=== PATIENT | male | born 1950 | race African-American/Black ===

== ENCOUNTER 2016-11-02 07:46 | Outpatient (CLI) | payer MEDICARE ==
[2016-11-02] MEDS ORDERED: Iopamidol 370 76% 100 ML VIAL ONE (11:04)
--- NOTE | 2016-11-02 13:12 | CT ---
CT OF THE ABDOMEN AND PELVIS WITH AND WITHOUT CONTRAST INDICATIONS: Pancreatic cystic mass. COMPARISON: CT of the chest, abdomen, and pelvis, dated 08/25/2016. CONTRAST: Isovue 90 mL. FINDINGS: There is a 1.4 cm cystic lesion without appreciable interval enhancement involving the pancreatic ta il. This is slightly smaller than seen on the comparison CT dated 12/25/2015 and may reflect a reso lving pseudo cyst. There are layered gallstones within the gallbladder. There is prominent fatty infiltration of the l iver. The adrenal glands are normal appearing. The kidneys are normal appearing. No free fluid or large lymph nodes evident. There is a moderate amount of retained stool within the colon. The shade dder is decompressed. There are scattered diverticula involving the colon without evidence of activ e diverticulitis. There is no evidence of bowel obstruction. There is a right-sided inguinal herni a, containing portions of the cecum and the terminal ileum. This is similar to the prior exam. The re is scattered degenerative and osteoarthritic change. IMPRESSION: 1. Cystic lesion involving the pancreatic tail demonstrates no appreciable internal enhancement and is slightly smaller than on the comparison CT and may reflect a resolving pseudo cyst. Recommend a follow-up examination in three months to document stability. 2. Fatty liver. 3. Cholelithiasis. 4. Colonic diverticulosis. 5. Enlarged right inguinal hernia, containing portions of the cecum and the terminal ileum, without evidence of obstruction. POS: [facility]
== END 2016-11-02 07:47 | disposition home or self-care (01) ==
LOC: MADCT 07:46
PROVIDERS: ATTEND Internal Medicine
DX: K86.2 Cyst of pancreas (principal); K76.0 Fatty (change of) liver, not elsewhere classified; K80.20 Calculus of gallbladder without cholecystitis without obstruction; K57.30 Diverticulosis of large intestine without perforation or abscess without bleeding; K40.90 Unilateral inguinal hernia, without obstruction or gangrene, not specified as recurrent
CPT/HCPCS: 36415; 74178; 82565

== ENCOUNTER 2017-02-17 08:45 | Outpatient (CLI) | payer MEDICARE ==
[2017-02-17 09:15] LABS: Hemoglobin A1c 7.3 % (4.0-6.0)
[2017-02-17 09:33] LABS: ALT (SGPT) 8 U/L (8-55); AST (SGOT) 8 U/L (5-34); Albumin 4.1 g/dL (3.4-4.8); Alkaline Phosphatase 93 U/L (40-150); Anion Gap 13 mmol/L (10-20); BUN (Urea Nitrogen) 23 mg/dL (8.4-25.7); Bilirubin, Total 1.4 mg/dL (0.2-1.2); Calc. Creatinine Clearance 0 mL/min (70-130); Calcium 9.1 mg/dL (7.8-10.44); Carbon Dioxide 24 mmol/L (23-31); Cardiac Risk 3.4 (Less than 4.5); Chloride 108 mmol/L (98-107); Cholesterol 135 mg/dl (< 200 Desired); Estimated GFR-MDRD 68; Globulin 3.7 g/dL (2.4-3.5); Glucose 98 mg/dL (80-115); HDL Cholesterol 40 mg/dL (>60 Neg Risk); LDL Cholesterol, Calculated 79 mg/dL; Potassium 3.8 mmol/L (3.5-5.1); Protein, Total 7.8 g/dL (5.8-8.1); Sodium 141 mmol/L (136-145); Triglycerides 78 mg/dL (Less than 150)
== END 2017-02-17 08:46 ==
LOC: MADLABBHPM 08:45
PROVIDERS: ATTEND Family Medicine
DX: E11.65 Type 2 diabetes mellitus with hyperglycemia (principal)
CPT/HCPCS: 36415; 80053; 80061; 83036

== ENCOUNTER 2017-02-22 11:20 | Outpatient (CLI) | payer MEDICARE ==
[2017-02-22 12:19] LABS: ALT (SGPT) 9 U/L (8-55); AST (SGOT) 9 U/L (5-34); Albumin 3.9 g/dL (3.4-4.8); Alkaline Phosphatase 102 U/L (40-150); Bilirubin, Direct 0.4 mg/dL (0.1-0.3); Bilirubin, Total 1.1 mg/dL (0.2-1.2); Protein, Total 7.6 g/dL (5.8-8.1)
[2017-02-22 17:31] LABS: HBCM Index 0.05 S/CO (0-0.79); HBSAg Index 0.27 S/CO (0-0.99); Hep A IgM AB Non-Reactive (NonReactive); Hep A IgM S/CO 0.12 S/CO (0-0.79); Hep B Surf Ag Non-Reactive S/CO (NonReactive); Hep C IgG Ab Non-Reactive (NonReactive); Hep C Index 0.06 S/CO (0-0.79); Hepatitis B Core IGM Abs Non-Reactive (NonReactive)
== END 2017-02-22 11:21 | disposition home or self-care (01) ==
LOC: MADLABBHPM 11:20
PROVIDERS: ATTEND Family Medicine
DX: E80.6 Other disorders of bilirubin metabolism (principal)
CPT/HCPCS: 36415; 80074; 80076

== ENCOUNTER 2017-03-15 11:46 | Emergency (ER) | payer MEDICARE ==
[~2017-03-15 11:46] MED LIST: Sodium Chloride 0.9% 100 ML BAG ONE
--- NOTE | 2017-03-15 12:28 | RAD ---
PORTABLE CHEST ONE VIEW: Date: 03-15-17 Time: 11:53 a.m. History: Bilateral leg edema. FINDINGS: Comparison made with exam of 08-25-16. The heart size is normal. The aorta is tortuous. The lungs are well expanded without confluent areas of consultation, pneumothorax, or pleural effusions. IMPRESSION: No radiographic evidence of acute cardiopulmonary process. POS: [facility]
[2017-03-15 13:06] LABS: ALT (SGPT) 10 U/L (8-55); AST (SGOT) 11 U/L (5-34); Albumin 3.6 g/dL (3.4-4.8); Alkaline Phosphatase 92 U/L (40-150); Anion Gap 14 mmol/L (10-20); BUN (Urea Nitrogen) 18 mg/dL (8.4-25.7); Bilirubin, Total 1.1 mg/dL (0.2-1.2); Calc. Creatinine Clearance 0 mL/min (70-130); Calcium 8.7 mg/dL (7.8-10.44); Carbon Dioxide 21 mmol/L (23-31); Chloride 110 mmol/L (98-107); Estimated GFR-MDRD 84; Globulin 3.3 g/dL (2.4-3.5); Glucose 88 mg/dL (80-115); Protein, Total 6.9 g/dL (5.8-8.1); Sodium 141 mmol/L (136-145)
[2017-03-15 13:17] LABS: Band 1 % (5-11); Eosinophils 1 % (0-10); Lymphocytes 18 % (21-51); MDiff Complete? YES; Mean Corpuscular HGB CONC 31.6 g/dL (32.0-36.0); Mean Corpuscular Hemoglobin 27.8 pg (27.0-31.0); Mean Platelet Volume 10.5 fL (7.4-10.4); Microcytosis SLIGHT = 6-15 cells (100X) (0-5/hpf); Monocytes 12 % (0-10); Neutrophil 67 % (42-75); Platelet Count 124 thou/uL (130-400); RBC Distribution Width 13.4 % (11.5-14.5); Red Blood Cell (RBC) Count 4.31 mill/uL (4.70-6.10); White Blood Cell (WBC) Count 5.3 thou/uL (4.8-10.8)
[2017-03-15] MEDS ORDERED: Potassium Chloride 20 MEQ TAB ONE (13:26)
[2017-03-15] MEDS ORDERED: Piperacillin/Tazobactam 3.375 GM VIAL ONE (13:26)
[2017-03-15] MEDS ORDERED: Furosemide 20 MG/2 ML VIAL ONE (13:26)
== END 2017-03-15 15:02 ==
LOC: MADERS 11:46
DX: R60.0 Localized edema (principal); E78.5 Hyperlipidemia, unspecified; E11.9 Type 2 diabetes mellitus without complications; I10 Essential (primary) hypertension; Z86.73 Personal history of transient ischemic attack (TIA), and cerebral infarction without residual deficits; Z79.82 Long term (current) use of aspirin; Z79.899 Other long term (current) drug therapy; Z79.4 Long term (current) use of insulin; Z79.02 Long term (current) use of antithrombotics/antiplatelets
CPT/HCPCS: 36415; 71010; 80053; 83880; 85025; 85379; 93005; 96365; 96375; J1940; J2543; J7050

== ENCOUNTER 2017-03-17 13:12 | Outpatient (CLI) | payer MEDICARE ==
[~2017-03-17 13:12] MED LIST changes: +Iopamidol 370 76% 100 ML VIAL ONE; -Sodium Chloride 0.9% 100 ML BAG ONE
--- NOTE | 2017-03-17 16:05 | CT ---
CT OF THE ABDOMEN PERFORMED WITH INTRAVENOUS CONTRAST ENHANCEMENT: 03/17/17 HISTORY: Followup of pancreatic cyst. COMPARISON: 11/02/16 and 08/25/16 exams. The lung bases are clear of infiltrates. The liver shows suggestion of some fatty change. The spleen is within normal limits of size. The pittman creatic tail mass is stable in appearance as compared to most recent exam. It measures approximately 15 to 16 mm in size. I do not appreciate an appreciable change. Gallbladder has sludge and stones. The right and left adrenal glands and right and left kidneys are normal in appearance. There is no s ignificant periaortic or mesenteric adenopathy. IMPRESSION: 1. Stable approximately 15 to 16 mm pancreatic tail low attenuation mass. 2. Sludge and stones within the gallbladder. 3. Fatty changes of the liver. 4. Colonic diverticulosis. POS: [facility]
== END 2017-03-17 13:13 | disposition home or self-care (01) ==
LOC: MADCT 13:12
PROVIDERS: ATTEND Family Medicine
DX: K86.2 Cyst of pancreas (principal); K80.20 Calculus of gallbladder without cholecystitis without obstruction; K57.30 Diverticulosis of large intestine without perforation or abscess without bleeding
CPT/HCPCS: 74160

== ENCOUNTER 2017-10-04 03:30 | Emergency (ER) | payer MEDICARE ==
[2017-10-04] MEDS ORDERED: Lidocaine 1% w/Epinephrine 1:100K 20 ML VIAL ONE (03:51)
[2017-10-04] MEDS ORDERED: Triple Antibiotic Oint 1 GM Packet ONE (04:22)
[2017-10-04] MEDS ORDERED: Amoxicillin/Potassium Clav 500 MG TAB ONE (04:33)
== END 2017-10-04 04:55 | disposition home or self-care (01) ==
LOC: MADERS 03:30
DX: S01.81XA Laceration without foreign body of other part of head, initial encounter (principal); S01.512A Laceration without foreign body of oral cavity, initial encounter; E78.5 Hyperlipidemia, unspecified; Z86.73 Personal history of transient ischemic attack (TIA), and cerebral infarction without residual deficits; E11.9 Type 2 diabetes mellitus without complications; I10 Essential (primary) hypertension; Z79.4 Long term (current) use of insulin; Z79.82 Long term (current) use of aspirin; Z79.899 Other long term (current) drug therapy; W18.09XA Striking against other object with subsequent fall, initial encounter
CPT/HCPCS: 12013; J2001

== ENCOUNTER 2018-05-12 18:05 | Emergency (ER) | payer MEDICARE, OTHER | END 2018-05-12 18:52 | LOC: MADERS 18:05 | DX: I10 Essential (primary) hypertension (principal); R60.0 Localized edema; E78.5 Hyperlipidemia, unspecified; Z86.73 Personal history of transient ischemic attack (TIA), and cerebral infarction without residual deficits; Z79.899 Other long term (current) drug therapy | CPT/HCPCS: 99284 ==

== ENCOUNTER 2018-12-26 19:37 | Emergency (ER) | payer MEDICARE, OTHER ==
[2018-12-26 20:23] LABS: #Eosinphils 0.1 thou/uL (0.0-0.7); #Lymphocytes 1.5 thou/uL (1.20-3.40); #Monocytes 0.5 thou/uL (0.11-0.59); #Neutrophils 3.4 thou/uL (1.40-6.50); %Basophils 0.4 % (0.0-1.0); %Eosinophils 2.2 % (0.0-10.0); %Lymphocytes 26.7 % (21.0-51.0); %Monocytes 8.4 % (0.0-10.0); %Neutrophils 62.3 % (42.0-75.0); Hemoglobin 12.5 g/dL (14.0-18.0); Mean Corpuscular Hemoglobin 27.5 pg (27.0-31.0); Mean Corpuscular Volume 88.8 fL (78.0-98.0); Mean Platelet Volume 9.8 fL (7.4-10.4); Platelet Count 163 thou/uL (130-400); RBC Distribution Width 13.4 % (11.5-14.5); Red Blood Cell (RBC) Count 4.55 mill/uL (4.70-6.10); White Blood Cell (WBC) Count 5.4 thou/uL (4.8-10.8)
--- NOTE | 2018-12-26 20:37 | RAD ---
Portable frontal chest radiograph: 12/26/2018 COMPARISON: 03/15/2017 HISTORY: Shortness of breath FINDINGS: Small bilateral pleural effusions. Pulmonary vessels are congestion noted. No pneumothorax. No lobar consolidation. Cardiac silhouette is prominent. IMPRESSION: Prominent cardiac silhouette with pulmonary vascular congestion and small bilateral pleur al effusions suggest pulmonary edema. Follow-up imaging following treatment advised.
[2018-12-26 20:47] LABS: ALT (SGPT) 10 U/L (8-55); AST (SGOT) 11 U/L (5-34); Albumin 3.7 g/dL (3.4-4.8); Alkaline Phosphatase 111 U/L (40-150); Anion Gap 15 mmol/L (10-20); BUN (Urea Nitrogen) 22 mg/dL (8.4-25.7); Bilirubin, Total 0.7 mg/dL (0.2-1.2); Calc. Creatinine Clearance 0 mL/min (70-130); Calcium 8.8 mg/dL (7.8-10.44); Carbon Dioxide 22 mmol/L (23-31); Chloride 107 mmol/L (98-107); Estimated GFR-MDRD 69; Globulin 2.8 g/dL (2.4-3.5); Glucose 308 mg/dL (80-115); Potassium 4.1 mmol/L (3.5-5.1); Protein, Total 6.5 g/dL (5.8-8.1); Sodium 140 mmol/L (136-145)
[2018-12-26] MEDS ORDERED: Nitroglycerin 2% Ointment 1 INCH/1 GM Packet ONE (20:47)
[2018-12-26] MEDS ORDERED: Insulin Regular 300 UNITS/3 ML VIAL ONE (20:57)
[2018-12-26] MEDS ORDERED: Furosemide 40 MG/4 ML VIAL ONE (20:57)
== END 2018-12-26 23:20 | disposition left against medical advice (07) ==
LOC: MADERS 19:37 → MADMS 21:36 → UNDOADMIN 21:36 → MADERS 23:20
DX: I11.0 Hypertensive heart disease with heart failure (principal); I50.1 Left ventricular failure, unspecified; E11.65 Type 2 diabetes mellitus with hyperglycemia; E78.5 Hyperlipidemia, unspecified; Z86.73 Personal history of transient ischemic attack (TIA), and cerebral infarction without residual deficits; Z79.899 Other long term (current) drug therapy; Z79.4 Long term (current) use of insulin; Z79.82 Long term (current) use of aspirin
CPT/HCPCS: 36416; 71045; 80053; 83880; 84484; 85025; 93005; 96374; J1815; J1940

== ENCOUNTER 2018-12-27 14:16 | Emergency (ER) | payer MEDICARE, OTHER ==
[2018-12-27 15:07] LABS: #Eosinphils 0.1 thou/uL (0.0-0.7); #Lymphocytes 1.3 thou/uL (1.20-3.40); #Monocytes 0.5 thou/uL (0.11-0.59); #Neutrophils 4.3 thou/uL (1.40-6.50); %Basophils 0.3 % (0.0-1.0); %Eosinophils 1.5 % (0.0-10.0); %Lymphocytes 20.5 % (21.0-51.0); %Neutrophils 69.7 % (42.0-75.0); Hemoglobin 12.2 g/dL (14.0-18.0); Mean Corpuscular HGB CONC 30.4 g/dL (32.0-36.0); Mean Corpuscular Hemoglobin 27.4 pg (27.0-31.0); Mean Corpuscular Volume 90.1 fL (78.0-98.0); Mean Platelet Volume 10.1 fL (7.4-10.4); Platelet Count 159 thou/uL (130-400); RBC Distribution Width 13.4 % (11.5-14.5); Red Blood Cell (RBC) Count 4.46 mill/uL (4.70-6.10); White Blood Cell (WBC) Count 6.1 thou/uL (4.8-10.8)
[2018-12-27 15:25] LABS: ALT (SGPT) 9 U/L (8-55); AST (SGOT) 9 U/L (5-34); Albumin 3.8 g/dL (3.4-4.8); Alkaline Phosphatase 120 U/L (40-150); Anion Gap 16 mmol/L (10-20); BUN (Urea Nitrogen) 22 mg/dL (8.4-25.7); Bilirubin, Total 0.7 mg/dL (0.2-1.2); Calc. Creatinine Clearance 0 mL/min (70-130); Carbon Dioxide 22 mmol/L (23-31); Chloride 108 mmol/L (98-107); Estimated GFR-MDRD 73; Globulin 3.3 g/dL (2.4-3.5); Glucose 269 mg/dL (80-115); Potassium 4.1 mmol/L (3.5-5.1); Protein, Total 7.1 g/dL (5.8-8.1); Sodium 142 mmol/L (136-145)
--- NOTE | 2018-12-27 15:36 | RAD ---
SINGLE VIEW OF THE CHEST: Comparison: 12-26-18 History: Dyspnea. FINDINGS: Single view of the chest shows a normal sized cardiomediastinal silhouette. There is no evidence of c onsolidation, mass, or pleural effusion. The bones are unremarkable. IMPRESSION: No evidence of acute cardiopulmonary disease. POS: [facility]
[2018-12-27] MEDS ORDERED: Furosemide 40 MG/4 ML VIAL ONE (16:33)
== END 2018-12-27 15:00 ==
LOC: MADERS 14:16
DX: R60.0 Localized edema (principal); E78.5 Hyperlipidemia, unspecified; Z86.73 Personal history of transient ischemic attack (TIA), and cerebral infarction without residual deficits; E11.9 Type 2 diabetes mellitus without complications; I10 Essential (primary) hypertension; Z79.82 Long term (current) use of aspirin; Z79.899 Other long term (current) drug therapy; Z79.4 Long term (current) use of insulin
CPT/HCPCS: 36415; 71045; 80053; 83880; 84484; 85025; 93005; 94760; 96374; J1940

== ENCOUNTER 2018-12-29 14:15 | Inpatient (IN) | payer MEDICARE, OTHER ==
[2018-12-29 15:20] LABS: #Eosinphils 0.1 thou/uL (0.0-0.7); #Lymphocytes 1.1 thou/uL (1.20-3.40); #Monocytes 0.5 thou/uL (0.11-0.59); #Neutrophils 4.7 thou/uL (1.40-6.50); %Basophils 0.7 % (0.0-1.0); %Eosinophils 1.1 % (0.0-10.0); %Lymphocytes 16.8 % (21.0-51.0); %Monocytes 7.7 % (0.0-10.0); %Neutrophils 73.7 % (42.0-75.0); Mean Corpuscular HGB CONC 31.6 g/dL (32.0-36.0); Mean Corpuscular Hemoglobin 27.7 pg (27.0-31.0); Mean Corpuscular Volume 87.7 fL (78.0-98.0); Mean Platelet Volume 10.6 fL (7.4-10.4); Platelet Count 149 thou/uL (130-400); Red Blood Cell (RBC) Count 4.33 mill/uL (4.70-6.10); White Blood Cell (WBC) Count 6.4 thou/uL (4.8-10.8)
[2018-12-29 15:29] LABS: Bilirubin Negative (Negative); Blood, Urine Negative (Negative); Clarity Clear (Clear); Glucose, Urine (Dipstick) 500 mg/dL (Negative); Leukocyte Negative (Negative); Nitrite Negative (Negative); Protein, Urine (Dipstick) Negative (Neg-Trace); Specific Gravity, Urine 1.015 (1.005-1.030); Urobilinogen 0.2 mg/dL (0.2-1.0)
--- NOTE | 2018-12-29 15:31 | RAD ---
TWO VIEW CHEST: 12/29/18 HISTORY: Cough. The lungs are clear. No infiltrates seen. Heart and mediastinum unremarkable. IMPRESSION: No acute findings. POS: [facility]
[2018-12-29 15:34] LABS: ALT (SGPT) 10 U/L (8-55); AST (SGOT) 9 U/L (5-34); Albumin 3.8 g/dL (3.4-4.8); Alkaline Phosphatase 118 U/L (40-150); Anion Gap 12 mmol/L (10-20); BUN (Urea Nitrogen) 26 mg/dL (8.4-25.7); Bilirubin, Total 0.8 mg/dL (0.2-1.2); Calc. Creatinine Clearance 0 mL/min (70-130); Calcium 9.1 mg/dL (7.8-10.44); Carbon Dioxide 23 mmol/L (23-31); Chloride 107 mmol/L (98-107); Estimated GFR-MDRD 67; Globulin 3.2 g/dL (2.4-3.5); Glucose 318 mg/dL (80-115); Potassium 4.1 mmol/L (3.5-5.1); Sodium 138 mmol/L (136-145)
[2018-12-29] MEDS ORDERED: Insulin Regular 300 UNITS/3 ML VIAL ONE (15:54)
--- NOTE | 2018-12-29 16:16 | CT ---
CT BRAIN WITHOUT CONTRAST: HISTORY:Slurred speech and right-sided weakness COMPARISON:05/07/2013 FINDINGS: There is an old infarction in the left parietal lobe. An old lacunar infarction is seen in the left t halamus. There are foci of decreased attenuation in the periventricular white matter, consistent with chronic small vessel ischemic disease. No evidence of acute infarct, hemorrhage, midline shift or abnormal extra-axial fluid collections is seen. The ventricular size is stable and the basilar cisterns are patent. The bony calvarium is intact. The visualized paranasal sinuses and mastoid air cells are well aerated. IMPRESSION: No CT evidence of acute intracranial process.
[2018-12-29 17:29] VITALS: BMI 33.2
[2018-12-29] MEDS ORDERED: Dextrose 5% in Water 1,000 ML IV PRN (18:02)
[2018-12-29] MEDS ORDERED: HumaLOG 300 UNITS/3 ML VIAL SC PRN (18:02)
[2018-12-29] MEDS ORDERED: Dextrose 50% Abboject 50 ML SYRINGE IVP PRN (18:02)
[2018-12-29] MEDS ORDERED: Acetaminophen 325 MG TAB PO PRN (18:04)
[2018-12-29] MEDS ORDERED: Enoxaparin Sodium 40 MG/0.4 ML SYRINGE SC SCH (18:15)
[2018-12-29] MEDS ORDERED: Artificial Tear Sol 15 ML BOT EA EYE PRN (18:16)
[2018-12-29] MEDS: Atorvastatin Calcium 10 MG TAB PO SCH (20:41)
[2018-12-29] MEDS: Brinzolamide 1% Ophth Soln 10 ml Bottle R EYE SCH (20:42)
[2018-12-29] MEDS: Latanoprost 0.005% Ophth Soln 2.5 ml Bottle EA EYE SCH (20:43)
[2018-12-29] MEDS: Timolol 0.5% Ophth Soln 5 ml Bottle EA EYE SCH (20:44)
[2018-12-30 05:16] LABS: #Eosinphils 0.1 thou/uL (0.0-0.7); #Lymphocytes 1.3 thou/uL (1.20-3.40); #Monocytes 0.5 thou/uL (0.11-0.59); #Neutrophils 2.8 thou/uL (1.40-6.50); %Eosinophils 2.1 % (0.0-10.0); %Lymphocytes 28.1 % (21.0-51.0); %Monocytes 10.1 % (0.0-10.0); %Neutrophils 58.7 % (42.0-75.0); Hemoglobin 11.8 g/dL (14.0-18.0); Mean Corpuscular HGB CONC 32.1 g/dL (32.0-36.0); Mean Corpuscular Hemoglobin 27.9 pg (27.0-31.0); Mean Corpuscular Volume 86.9 fL (78.0-98.0); Mean Platelet Volume 10.1 fL (7.4-10.4); Platelet Count 149 thou/uL (130-400); Red Blood Cell (RBC) Count 4.23 mill/uL (4.70-6.10); White Blood Cell (WBC) Count 4.7 thou/uL (4.8-10.8)
[2018-12-30 05:29] LABS: Anion Gap 12 mmol/L (10-20); BUN (Urea Nitrogen) 18 mg/dL (8.4-25.7); Calc. Creatinine Clearance 107 mL/min (70-130); Calcium 8.6 mg/dL (7.8-10.44); Carbon Dioxide 23 mmol/L (23-31); Chloride 111 mmol/L (98-107); Estimated GFR-MDRD Greater than 90; Glucose 108 mg/dL (80-115); Potassium 3.7 mmol/L (3.5-5.1); Sodium 142 mmol/L (136-145)
[2018-12-30] MEDS: Lantus 1000 UNITS/10 ML VIAL SC SCH (08:19)
[2018-12-30] MEDS: Potassium Chloride 20 MEQ TAB PO SCH (08:20)
[2018-12-30] MEDS: Furosemide 80 MG TAB PO SCH (08:20)
[2018-12-30] MEDS: Atenolol 25 MG TAB PO SCH (08:20)
[2018-12-30] MEDS: Brinzolamide 1% Ophth Soln 10 ml Bottle R EYE SCH ×3 (08:21→21:02)
[2018-12-30] MEDS: Aspirin 325 MG TAB PO SCH (08:21)
[2018-12-30] MEDS: Clopidogrel Bisulfate 75 MG TAB PO SCH (08:22)
[2018-12-30] MEDS: Enoxaparin Sodium 40 MG/0.4 ML SYRINGE SC SCH (08:22)
[2018-12-30] MEDS: Timolol 0.5% Ophth Soln 5 ml Bottle EA EYE SCH ×2 (08:22→21:04)
[2018-12-30] MEDS ORDERED: Prevnar 13-Val Conj/PF 0.5 ML SYRINGE IM ONE (09:00)
[2018-12-30] MEDS: HumaLOG 300 UNITS/3 ML VIAL SC PRN (11:58)
[2018-12-30] MEDS: Atorvastatin Calcium 10 MG TAB PO SCH (21:02)
[2018-12-30] MEDS: Latanoprost 0.005% Ophth Soln 2.5 ml Bottle EA EYE SCH (21:03)
--- NOTE | 2018-12-31 07:21 | HP ---
REASON FOR ADMISSION: Generalized weakness. HISTORY OF PRESENT ILLNESS: This is a 68-year-old male with history of prior stroke with resulting hemiplegia, type 2 diabetes, hypertension , hyperlipidemia, coronary artery disease, but currently resides at the assisted living facility, who presented to the emergency room 3 times in the last 3 days for report of weakness. The patient was seen on the in the ER because he was brought by the assisted living facility and apparently left AMA prior to any treatment. The patient was brought back again the next day and was found to have some pulmonary vascular congestion, was treated with IV diuretics, and discharged back to the assisted living facility. Subsequently was seen again in the ER yesterday evening for weakness and inability to get out of bed. In the emergency room, the patient had a complete workup with labs and imaging including chest x-ray and CT head, none of which showed any acute findings. Decision initially was to admit for weakness, but patient refused stating he wanted to leave AMA again. The ER doctor then discharged to assisted living but assisted living refused to take him back due to his current immobility, so he was therefore admitted to inpatient for further evaluation of his weakness. The patient is seen today and reports no concerns, no complaints. He is alert and oriented x 2. No family is at the bedside. He is resting comfortably. No concerns per nursing. The nursing staff does report he is a 2-person assist to ambulate to the bathroom at this time which is worse from his baseline. The patient denies any chest pain, shortness of breath, or abdominal pain. PAST MEDICAL HISTORY: 1. Type 2 diabetes, insulin dependent. 2. Hypertension. 3. History of CVA with resulting hemiplegia. 4. Hyperlipidemia. 5. Coronary artery disease. 6. Lower extremity edema - no known h/o CHF PAST SURGICAL HISTORY: History of I and D for an abscess. FAMILY HISTORY: Noncontributory. SOCIAL HISTORY: Per the records, there is no reported history of smoking, alcohol, or illicit drug use. The patient currently resides in the assisted living facility. He does have a power of civil litigation attorney, which is a sister who was present in the emergency room yesterday and agreed with the decision for admission for higher level of care. REVIEW OF SYSTEMS: Negative other than as mentioned above. PHYSICAL EXAMINATION: VITAL SIGNS: His weight is 218 pounds, temperature is 98.4, blood pressure is 144/79, heart rate is 50, respirations 18, O2 saturation 97%. GENERAL: The patient is alert and oriented x2, he knows his name and place, but unsure of the date. He is calm, comfortable, and cooperative, following commands. HEENT: Pupils are equally round and reactive to light. Oropharynx is moist without erythema or exudates. NECK: Supple without lymphadenopathy. CARDIOVASCULAR: Rate is regular, but mildly bradycardic. No murmurs. RESPIRATORY: Lungs are clear to auscultation bilaterally. ABDOMEN: Soft, nontender, and nondistended with normoactive bowel sounds. EXTREMITIES: Positive for trace pitting edema to bilateral lower extremities. NEUROLOGIC: The patient is calm, but mildly disoriented. Right upper extremity with strength 4/5, left upper extremity 5/5. Bilateral lower extremities are 5/ 5. The patient was noted to have an unsteady gait requiring assistance, but otherwise no focal deficits. SKIN: Warm and dry. LABORATORY DATA AND IMAGING: Initial CBC was normal with the exception of a hemoglobin of 12.0. Repeat CBC this morning indicates a white blood cell count of 4.7, hemoglobin of 11.8, hematocrit 36.7, platelet count of 149. Initial chemistry panel was normal with the exception of glucose of 318. His troponin was negative at 0.010. BNP is 65.6. Repeat BMP this morning shows improved glucose at 124 and otherwise normal electrolyte panel. CT head shows no CT evidence of acute intracranial process. There is evidence of an old infarction in the left parietal lobe as well as an old lacunar infarction in the left thalamus. He also is noted to have chronic small-vessel ischemic disease. Chest x-ray shows no acute findings. ASSESSMENT AND PLAN: 1. Generalized weakness. In review of the PCP records as well as recent ER visits, it seems the patient has had a progressive decline in overall function over the last few weeks. PCP had recently started outpatient physical therapy. There does not appear to be any clear acute reason for his decline in overall functioning. The assisted living facility was unable to further accommodate his needs at his level of functioning, and therefore decision was made to admit him to inpatient for further evaluation of the weakness and to assist with possible placement to a higher level of care such as a group home. Physical Therapy and Occupational Therapy have been consulted and will be evaluating the patient today. He will be placed on fall risk precautions. 2. Type 2 diabetes which is insulin dependent with acute hyperglycemia. The patient was resumed on his home insulin regimen with moderate sliding scale as well as an ADA diet of 2000 kcal per day. The hyperglycemia has since resolved. 3. History of cerebrovascular accident at least x2 with history of hemiplegia. No acute findings were found in the emergency room on the CT of the head. I suspect his deficits are chronic for him, although he does have some mild disorientation. We will continue him on his home medications. 4. Hypertension. This is well controlled at this time. 5. Hyperlipidemia, stable. 6. Coronary artery disease, stable with negative troponins in the emergency room. 7. Mild bradycardia. The patient is on a beta dominga. I do not suspect that his mild bradycardia is contributing to his generalized weakness, but we will continue to monitor and hold the beta dominga if this worsens. 8. Deep vein thrombosis prophylaxis: The patient is on Lovenox daily. 9. Code status: This is somewhat unclear. The patient reported in the emergency room that he did not want any CPR, although he was mildly disoriented. It does not seem that he has any advance directives in place. We will defer to PCP Dr. Gómez to address this with the patient in the morning. DISPOSITION: Anticipate >3 midnight stay for diagnosis of generalized weakness that is not likely to be quickly corrected. We will consult Social Work to assist with possible placement to a higher level of care in group home. PCP, Dr. Gómez to resume care in the morning of 12/31. Job ID: [id number] [facility]
[2018-12-31] MEDS: Aspirin 325 MG TAB PO SCH (08:23)
[2018-12-31] MEDS: Atenolol 25 MG TAB PO SCH (08:23)
[2018-12-31] MEDS: Enoxaparin Sodium 40 MG/0.4 ML SYRINGE SC SCH (08:23)
[2018-12-31] MEDS: Furosemide 80 MG TAB PO SCH (08:23)
[2018-12-31] MEDS: Clopidogrel Bisulfate 75 MG TAB PO SCH (08:23)
[2018-12-31] MEDS: Potassium Chloride 20 MEQ TAB PO SCH (08:23)
[2018-12-31] MEDS: Timolol 0.5% Ophth Soln 5 ml Bottle EA EYE SCH ×2 (08:24→20:53)
[2018-12-31] MEDS: Lantus 1000 UNITS/10 ML VIAL SC SCH (08:24)
[2018-12-31] MEDS: Brinzolamide 1% Ophth Soln 10 ml Bottle R EYE SCH ×3 (08:26→20:55)
[2018-12-31] MEDS: HumaLOG 300 UNITS/3 ML VIAL SC PRN ×2 (12:05→17:29)
[2018-12-31] MEDS: Latanoprost 0.005% Ophth Soln 2.5 ml Bottle EA EYE SCH (20:53)
[2018-12-31] MEDS: Atorvastatin Calcium 10 MG TAB PO SCH (20:53)
[2019-01-01] MEDS: Furosemide 80 MG TAB PO SCH (08:28)
[2019-01-01] MEDS: Aspirin 325 MG TAB PO SCH (08:28)
[2019-01-01] MEDS: Atenolol 25 MG TAB PO SCH (08:28)
[2019-01-01] MEDS: Clopidogrel Bisulfate 75 MG TAB PO SCH (08:29)
[2019-01-01] MEDS: Brinzolamide 1% Ophth Soln 10 ml Bottle R EYE SCH (08:29)
[2019-01-01] MEDS: Potassium Chloride 20 MEQ TAB PO SCH (08:29)
[2019-01-01] MEDS: Timolol 0.5% Ophth Soln 5 ml Bottle EA EYE SCH (08:36)
[2019-01-01] MEDS: Lantus 1000 UNITS/10 ML VIAL SC SCH (08:36)
[2019-01-01] MEDS: HumaLOG 300 UNITS/3 ML VIAL SC PRN (11:52)
[2019-01-01 11:58] VITALS: BP 113/67; TEMP 96.6
--- NOTE | 2019-01-02 15:17 | DIS ---
DATE OF ADMISSION: 12/29/2018 DATE OF DISCHARGE: 01/01/2019 PRIMARY CARE PHYSICIAN: Dr. Gómez. REASON FOR ADMISSION: Generalized weakness, deconditioning. DIAGNOSES: 1. Physical deconditioning secondary to generalized weakness. 2. Diabetes type 2 with hyperglycemia, insulin-dependent, poorly controlled. 3. Leg edema. 4. Hypertension. 5. Coronary artery disease. 6. Mild bradycardia, improved. 7. History of cerebrovascular accident with residual unilateral mild hemiplegia. 8. Unsteady gait. 9. Swallowing dysfunction. 10. Mild dysarthria stroke sequelae and also moderate oropharyngeal dysphagia per ST evaluation. DISPOSITION: Transfer to [facility] [address] for skilled rehab. CONDITION ON DISCHARGE: Stable. MEDICATIONS: 1. Lantus 40 units subcu daily. 2. Lasix 80 mg q.a.m. 3. Potassium 20 mEq q.a.m. 4. Latanoprost 1 drop in each eye at bedtime. 5. Timolol 1 drop in each eye b.i.d. 6. Humalog sliding scale per algorithm. 7. Glipizide 10 mg q.a.m. 8. Clopidogrel 75 mg p.o. daily. 9. Brinzolamide 1 drop in each eye t.i.d. 10. Atorvastatin 10 mg p.o. at bedtime. 11. Atenolol 50 mg p.o. daily. 12. Aspirin 325 mg p.o. daily. 13. Artificial Tears 1 to 2 drops in each eye p.r.n. 14. Acetaminophen 650 mg p.o. q.4 hours p.r.n. DISCHARGE INSTRUCTIONS: 1. Transfer to [facility] for group home, possible long-term care. 2. Diet, mechanical soft with extra sauce/gravy, meats and bread cut into bite size pieces with extra sauce/gravy, thin liquids with straw as permitted. 3. Activity: Very unsteady gait. At risk for fall, requiring rolling walker or to be determined by physical therapist. 4. To notify Dr. Gómez/attending once the patient is admitted to [facility] [address]. HISTORY OF THE PRESENT ILLNESS AND HOSPITAL COURSE: Mr. Self is a 68-year-old male with significant history of multiple chronic medical conditions including type 2 diabetes, insulin requiring, hypertension, hyperlipidemia, CAD, previous history of stroke with residual unilateral hemiplegia, mild dysarthria. The patient resides in an assisted living facility in [place]. Over the last few weeks, the patient has been reported to be generally weak and with unsteady gait. His blood sugar has also been elevated lately. The patient has not been taking his glimepiride at bedtime, thinking that it is his water pill. He has also not been compliant with his diet in the assisted living. Lately, he was also noted to be staying in bed for the most part and retaining more fluids in both of his legs. He has been in the ER couple times this past few weeks secondary to leg pain/leg edema and uncontrolled diabetes. Last week, he was recommended for inpatient and management of volume retention and hyperglycemic control. However, the patient signed AMA and went back to the assisted living facility. This time on 12/29/2018, the patient was sent back to the ER by [facility] due to the same reason. Reports that the patient could hardly get up from the bed on his own as he used to. He again reports pain in both of his legs. The patient initially refuses to go to the hospital this time. It took the [employer] salary and wage administrator for awhile to convince the patient until they get the patient's family who lives out of town to come in and convince the patient thus he was sent to [place] ER for further evaluation. Neuro and cardiac evaluation in the ER was unremarkable. His cardiac enzyme was negative. His chest x-ray was unremarkable. Brain CT showed no CT evidence of acute intracranial process as well. His initial BNP from the ER was less than 100. His initial sugar was 108. There was no significant evidence of congestive heart failure. The patient was admitted for general weakness. PT/OT eval was ordered. The patient definitely helps with his ADLs at this point and could not go back to assisted living. During this hospitalization, the patient was also noted to have swallowing dysfunction. He was witnessed by the nursing staff, choking and coughing with meals. Speech evaluation was ordered. The patient was diagnosed with moderate oropharyngeal dysphagia, recommending modification of his diet as above. The patient tolerated the current diet. There was no significant evidence of aspiration thus recommending further speech therapy and may consider swallow study in the near future if indicated. However, all his blood sugar while in the hospital is fairly controlled with current insulin and oral hypoglycemic therapy. On 01/01/2019, the patient was transferred to [facility] per request to continue skilled rehab. Vital signs prior to discharge; Blood pressure 113/67, temp 96.6, heart rate 55, respirations 18, O2 sats 97% on room air. Weight 218 pounds and 6 ounces. Height 5 feet 8 inches. CODE STATUS: Full code. Job ID: [id number]
== END 2019-01-01 13:22 | DRG 948 ==
LOC: MADERS 14:15 → MADMS 16:43
PROVIDERS: ADMIT Family Medicine; ATTEND Family Medicine
DX: R53.1 Weakness (principal); I69.359 Hemiplegia and hemiparesis following cerebral infarction affecting unspecified side; E11.65 Type 2 diabetes mellitus with hyperglycemia; I10 Essential (primary) hypertension; E78.5 Hyperlipidemia, unspecified; I25.10 Atherosclerotic heart disease of native coronary artery without angina pectoris; R00.1 Bradycardia, unspecified
CPT/HCPCS: 36415; 36416; 70450; 71046; 80048; 80053; 81003; 83880; 84484; 85025; 93005; 94760; J1650; J1815

== ENCOUNTER 2019-01-24 12:23 | Outpatient (CLI) | payer MEDICARE, OTHER ==
--- NOTE | 2019-01-24 13:46 | ULT ---
EXAM: US Testicular PROVIDED CLINICAL HISTORY: Testicular swelling on and off. COMPARISON: None FINDINGS: Right testicle measures 2.5 cm x 1.8 cm x 3.4 cm. The right testicle demonstrates homogeneous echotex ture without evidence of a testicular mass. The left testicle measures 2.8 cm x 1.5 cm x 2.4 cm. There is a circumscribed anechoic cystic structu re within the midportion left testicle measuring 1 cm in maximal dimension which demonstrates sonographic characteristics most compatible with an intratesticular cyst. No solid testicular mass is identified. Evaluation of flow within each testicle is unable to be adequately assessed on this examination. There are tiny bilateral hydroceles which may be physiologic in origin. IMPRESSION: 1. Small left intratesticular cyst. The testicles otherwise demonstrate a normal sonographic appearan ce bilaterally. 2. While there is suggestion of flow within each testicle, flow is not adequately assessed based on p rovided sonographic images.
== END 2019-01-24 12:24 | disposition home or self-care (01) ==
LOC: MADULT 12:23
PROVIDERS: ATTEND Family Medicine
DX: N50.89 Other specified disorders of the male genital organs (principal); N44.2 Benign cyst of testis
CPT/HCPCS: 76870

== ENCOUNTER 2019-09-05 15:36 | Emergency (ER) | payer MEDICARE, OTHER | END 2019-09-05 16:58 | disposition short-term general hospital (02) | LOC: MADERS 15:36 | DX: K94.23 Gastrostomy malfunction (principal); I25.10 Atherosclerotic heart disease of native coronary artery without angina pectoris; E78.5 Hyperlipidemia, unspecified; E78.00 Pure hypercholesterolemia, unspecified; E11.9 Type 2 diabetes mellitus without complications; I10 Essential (primary) hypertension; Z86.73 Personal history of transient ischemic attack (TIA), and cerebral infarction without residual deficits; Z79.899 Other long term (current) drug therapy; Z79.4 Long term (current) use of insulin; Z79.82 Long term (current) use of aspirin; Z79.01 Long term (current) use of anticoagulants | CPT/HCPCS: 99284 ==

== ENCOUNTER 2020-01-11 11:29 | Emergency (ER) | payer MEDICARE, OTHER | END 2020-01-11 12:43 | LOC: MADERS 11:29 | DX: K94.23 Gastrostomy malfunction (principal); E11.9 Type 2 diabetes mellitus without complications; I25.10 Atherosclerotic heart disease of native coronary artery without angina pectoris; E78.5 Hyperlipidemia, unspecified; Z86.73 Personal history of transient ischemic attack (TIA), and cerebral infarction without residual deficits; Z79.899 Other long term (current) drug therapy; Z79.82 Long term (current) use of aspirin; Z79.4 Long term (current) use of insulin | CPT/HCPCS: 99283; B4087 ==

== ENCOUNTER 2020-03-10 19:03 | Emergency (ER) | payer MEDICARE, OTHER ==
--- NOTE | 2020-03-10 20:30 | RAD ---
RADIOGRAPH ABDOMEN 1 VIEW: 03/10/20 HISTORY: 70-year-old male status post inadvertent pull out of PEG tube. PEG tube check. FINDINGS: There is contrast material injected through the PEG tube, filling the lumen of a nondistended stomach . No extravasation. Large amount of stool in the rectum and moderate amount of stool elsewhere in the colon. Large amount of gas in dilated bowel loops in the upper mid abdomen which could be colon. IMPRESSION: 1. Intraluminal position of distal portion of percutaneous gastrostomy tube confirmed, without e vidence of leakage. 2. Constipation. POS: [facility]
== END 2020-03-10 21:47 ==
LOC: MADERS 19:03
DX: Z43.1 Encounter for attention to gastrostomy (principal); E11.9 Type 2 diabetes mellitus without complications; E78.5 Hyperlipidemia, unspecified; E78.00 Pure hypercholesterolemia, unspecified; I10 Essential (primary) hypertension; I25.10 Atherosclerotic heart disease of native coronary artery without angina pectoris; Z86.73 Personal history of transient ischemic attack (TIA), and cerebral infarction without residual deficits; Z79.82 Long term (current) use of aspirin; Z79.899 Other long term (current) drug therapy
CPT/HCPCS: 74018

== ENCOUNTER 2020-04-08 06:45 | Emergency (ER) | payer MEDICARE, OTHER ==
[2020-04-08 07:37] LABS: ALT (SGPT) 29 U/L (8-55); AST (SGOT) 15 U/L (5-34); Albumin 3.9 g/dL (3.4-4.8); Alkaline Phosphatase 179 U/L (40-110); Anion Gap 19 mmol/L (10-20); BUN (Urea Nitrogen) 55 mg/dL (8.4-25.7); Calc. Creatinine Clearance 0 mL/min (70-130); Calcium 9.9 mg/dL (7.8-10.44); Carbon Dioxide 27 mmol/L (23-31); Chloride 116 mmol/L (98-107); Estimated GFR-MDRD 64; Globulin 3.9 g/dL (2.4-3.5); Glucose 475 mg/dL (80-115); Lipase 25 U/L (8-78); Potassium 3.7 mmol/L (3.5-5.1); Protein, Total 7.8 g/dL (5.8-8.1); Sodium 158 mmol/L (136-145)
[2020-04-08] MEDS ORDERED: Acetaminophen 500 MG TAB ONE ×2 (07:38→07:46)
[2020-04-08] MEDS ORDERED: Sodium Chloride 0.9% 1,000 ML ONE ×2 (07:38→08:05)
--- NOTE | 2020-04-08 07:42 | RAD ---
EXAM: Single view of the chest HISTORY: Cough COMPARISON: 03/10/2019 FINDINGS: Single view of the chest shows a normal sized cardiomediastinal silhouette. There is no niall dence of consolidation, mass, or pleural effusion. The bones are unremarkable IMPRESSION: No evidence of acute cardiopulmonary disease
[2020-04-08 07:54] LABS: Hemoglobin 15.5 g/dL (14.0-18.0); Mean Corpuscular HGB CONC 29.1 g/dL (32.0-36.0); Mean Corpuscular Hemoglobin 28.4 pg (27.0-31.0); Mean Corpuscular Volume 97.7 fL (78.0-98.0); Mean Platelet Volume 14.6 fL (7.4-10.4); Platelet Count 126 thou/uL (130-400); RBC Distribution Width 14.6 % (11.5-14.5); Red Blood Cell (RBC) Count 5.33 mill/uL (4.70-6.10); White Blood Cell (WBC) Count 6.1 thou/uL (4.8-10.8)
[2020-04-08 08:02] LABS: MDiff Complete? YES; Manual Diff?? YES
[2020-04-08 08:03] LABS: Anisocytosis SLIGHT = 6-15 cells (100X) (0-5/hpf); Band 29 % (5-11); Lymphocytes 13 % (21-51); Monocytes 10 % (0-10); Neutrophil 48 % (42-75); Platelet Morphology Comment Appears Adequate
[2020-04-08] MEDS ORDERED: Azithromycin 500 MG VIAL ONE (08:05)
[2020-04-08] MEDS ORDERED: Sodium Chloride 0.9% 100 ML ONE (08:05)
[2020-04-08] MEDS ORDERED: Sodium Chloride 0.9% 250 ML 250 ML ONE (08:05)
[2020-04-08] MEDS ORDERED: cefTRIAXone\\ROCEPHIN 2 GM VIAL ONE (08:05)
[2020-04-08] MEDS ORDERED: Vancomycin HCl 750 MG VIAL ONE ×2 (08:41→08:45)
[2020-04-08] MEDS ORDERED: Sodium Chloride 0.9% 500 ML ONE (08:41)
[2020-04-08] MEDS ORDERED: Vancomycin HCl 500 MG VIAL ONE (08:42)
[2020-04-08] MEDS ORDERED: Vancomycin 1.5 GRAM/300 ML BAG ONE (08:42)
[2020-04-08 08:47] LABS: Bilirubin Negative (Negative); Blood, Urine Negative (Negative); Clarity Clear (Clear); Glucose, Urine (Dipstick) >=1000 mg/dL (Negative); Ketone, Urine Negative (Negative); Leukocyte Negative (Negative); Nitrite Negative (Negative); Protein, Urine (Dipstick) Negative (Neg-Trace); Urobilinogen 0.2 mg/dL (Less than 2)
--- NOTE | 2020-04-08 09:16 | CT ---
EXAM: CTA of the chest HISTORY: Cough and elevated d-dimer COMPARISON: CT abdomen/pelvis 03/17/2017 TECHNIQUE: Multiple contiguous axial images were obtained a CTA of the chest with contrast per pulmon carolyn embolism protocol. 3-D oblique MIP reformats and direct coronal reformats were performed. FINDINGS: HEART: Normal in size without focal cardiac abnormality. PULMONARY ARTERIES: Normal in caliber without filling defects to suggest pulmonary emboli. MEDIASTINUM: No hilar or mediastinal lymphadenopathy. LUNGS: Opacities are seen in the lung bases which may represent atelectasis or infiltrates. No suspic ious pulmonary mass is seen. PLEURAL SPACE: No pleural effusion or pneumothorax. CHEST WALL SOFT TISSUES: Unremarkable VISUALIZED OSSEOUS STRUCTURES: Degenerative changes in the spine. VISUALIZED SUBDIAPHRAGMATIC STRUCTURES: 1.7 cm hypodensity in the tail the pancreas likely represents a cyst. IMPRESSION: 1. No evidence of pulmonary thromboembolism 2. Bibasilar atelectasis versus infiltrates
[2020-04-08] MEDS ORDERED: Iopamidol 370 76% 125 ML VIAL FS ONE (10:34)
== END 2020-04-08 09:36 | disposition home or self-care (01) ==
LOC: MADERS 06:45
DX: A41.9 Sepsis, unspecified organism (principal); R65.20 Severe sepsis without septic shock; R05 Cough; I25.10 Atherosclerotic heart disease of native coronary artery without angina pectoris; E78.00 Pure hypercholesterolemia, unspecified; E78.5 Hyperlipidemia, unspecified; E11.39 Type 2 diabetes mellitus with other diabetic ophthalmic complication; I10 Essential (primary) hypertension; H42 Glaucoma in diseases classified elsewhere; Z86.73 Personal history of transient ischemic attack (TIA), and cerebral infarction without residual deficits; Z79.82 Long term (current) use of aspirin; Z79.899 Other long term (current) drug therapy
CPT/HCPCS: 51701; 71045; 71275; 80053; 81003; 83605; 83690; 83880; 84484; 85025; 85379; 87040; 93005; 94760; 96365; 96368; 96375; J0456; J0696; J3370; J3490; J7030; J7050; Q9967